=== PATIENT | female | born 1995 | race Caucasian/White ===

== ENCOUNTER 2022-01-28 08:00 | Inpatient (IN) | payer OTHER ==
[2022-02-14] MEDS ORDERED: CITRIC ACID/SODIUM CITRATE 30 ML UNIT-DOSE CUP PO ONE (04:21)
[2022-02-14] MEDS ORDERED: CLINDAMYCIN 900 MG PREMIX IVPB 900 MG/50 ML BAG IVPB ONE (04:46)
[2022-02-14] MEDS: ELECTROLYTE-148 SOLN 1,000 ML IV SCH ×2 (05:00→07:47)
[2022-02-14 05:50] LABS: BASO % 0.6 % (0-2.0); EOS % 0.6 % (0-4.5); HEMATOCRIT 29.1 % (32.4-45.2); HEMOGLOBIN 9.1 GM/dL (10.7-15.3); LYMPH % 10.7 % (8-40); MCHC 31.3 g/dl (32.0-36.0); MEAN CELL VOLUME 70.1 fl (80-96); MEAN PLT VOLUME 8.7 fl (7.5-11.1); NEUT % 83.1 % (42.8-82.8); PLATELET COUNT 255 10^3/uL (134-434); RBC 4.15 M/mm3 (3.60-5.2); RDW 17.9 % (11.6-15.6); WHITE BLOOD COUNT 15.9 K/mm3 (4.0-10.0)
[2022-02-14 06:11] LABS: CALCIUM 8.3 mg/dL (8.5-10.1)
[2022-02-14 06:12] LABS: BLOOD UREA NITROGEN 9.8 mg/dL (7-18)
[2022-02-14 06:15] LABS: CREATININE 0.6 mg/dL (0.55-1.3)
[2022-02-14 06:16] VITALS: BMI 32.1
[2022-02-14 06:17] LABS: INR 0.94 (0.83-1.09); PROTHROMBIN TIME (PATIENT) 10.8 SEC (9.7-13.0)
[2022-02-14] MEDS ORDERED: morphine SULFATE/PF 1 MG/2 ML (2cc Syringe - QUVA) ONE (07:32)
[2022-02-14] MEDS ORDERED: PROPOFOL 20 ML ONE (07:32)
[2022-02-14] MEDS ORDERED: SUCCINYLCHOLINE CHLORIDE 200 MG/10 ML SYRINGE ONE (07:32)
[2022-02-14] MEDS ORDERED: PHENYLEPHRINE HCL 10 MG/1 ML SINGLE DOSE VIAL ONE (07:33)
[2022-02-14] MEDS ORDERED: ePHEDrine SULFATE 50 MG/1 ML AMPULE ONE (07:35)
[2022-02-14] MEDS ORDERED: OXYTOCIN 20 UNITS in 0.9% NS 20 UNIT/1,000 ML INFUS.BAG IV ONE ×2 (07:56→12:46)
[2022-02-14] MEDS ORDERED: ONDANSETRON 4 MG/2 ML VIAL ONE (08:24)
[2022-02-14 08:45] LABS: ANISOCYTOSIS 0; MACROCYTOSIS 0
[2022-02-14] MEDS: OXYTOCIN 20 UNITS in 0.9% NS 20 UNIT/1,000 ML INFUS.BAG IV SCH ×2 (08:45→12:49)
[2022-02-14] MEDS ORDERED: METHYLERGONOVINE MALEATE 0.2 MG/1 ML AMP IM PRN (09:24)
[2022-02-14] MEDS ORDERED: IBUPROFEN 600 MG TABLET (FP) PO PRN (09:24)
[2022-02-14] MEDS ORDERED: BENZOCAINE 20% 57 GM BOTTLE TP PRN (09:24)
[2022-02-14] MEDS ORDERED: BENZOCAINE 28 GM HEMORRHOIDAL OINTMENT TP PRN (09:24)
[2022-02-14] MEDS ORDERED: ACETAMINOPHEN 325 MG TABLET (FP) PO PRN (09:24)
[2022-02-14] MEDS ORDERED: SENNOSIDES/DOCUSATE COMBO (SENNA PLUS) TABLET (UD) PO PRN (09:24)
[2022-02-14] MEDS ORDERED: WITCH HAZEL 50% (TUCKS) 40 PAD/JAR PAD TP PRN (09:24)
[2022-02-14] MEDS ORDERED: IBUPROFEN 800 MG/8 ML IJ IVPB PRN (09:24)
[2022-02-14 10:35] LABS: CORD HCO3 25.3 mmHg (20-29); CORD PCO2 51.8 mmHg (30-78); CORD pH 7.307 (7.14-7.44)
[2022-02-14 10:38] LABS: CORD PCO2 46.1 mmHg (30-78); CORD pH 7.315 (7.14-7.44)
[2022-02-14] MEDS: PRENATAL VITAMINS W/ FOLIC ACID TABLET (FP) PO SCH (13:13)
[2022-02-14] MEDS ORDERED: oxyCODONE HCL 5 MG TABLET PO PRN ×2 (21:24)
[2022-02-15] MEDS: SIMETHICONE 80 MG TAB.CHEW (FP) PO PRN (01:51)
[2022-02-15] MEDS: ACETAMINOPHEN 650 MG/20.3 ML ORAL SOLUTION (CUPS) PO PRN ×2 (07:05→21:03)
[2022-02-15 08:45] LABS: BASO % 0.7 % (0-2.0); EOS % 0.5 % (0-4.5); HEMOGLOBIN 9.5 GM/dL (10.7-15.3); LYMPH % 10.5 % (8-40); MCHC 30.6 g/dl (32.0-36.0); MEAN PLT VOLUME 8.9 fl (7.5-11.1); MONO % 4.7 % (3.8-10.2); NEUT % 83.6 % (42.8-82.8); PLATELET COUNT 244 10^3/uL (134-434); RBC 4.31 M/mm3 (3.60-5.2); RDW 18.3 % (11.6-15.6); WHITE BLOOD COUNT 16.1 K/mm3 (4.0-10.0)
[2022-02-15] MEDS ORDERED: BISACODYL 10 MG SUPP.RECT RC PRN (09:24)
[2022-02-15] MEDS: ENOXAPARIN NA (PORCINE) 40 MG/0.4 ML DISP.SYRIN SQ SCH (09:33)
[2022-02-15] MEDS: PRENATAL VITAMINS W/ FOLIC ACID TABLET (FP) PO SCH (09:33)
[2022-02-15] MEDS ORDERED: DIPHTH,PERTUSS(ACELL),TET 0.5 ML DISP.SYRIN IM ONE (10:00)
[2022-02-15] MEDS ORDERED: DOCUSATE SODIUM 100 MG CAPSULE (FP) PO PRN (10:45)
[2022-02-15] MEDS ORDERED: FERROUS SO4 325 MG TABLET (FP) PO SCH (22:00)
[2022-02-16] MEDS: SIMETHICONE 80 MG TAB.CHEW (FP) PO PRN (05:16)
[2022-02-16] MEDS: IBUPROFEN 100 MG/5 ML UNIT DOSE CUPS PO PRN ×2 (05:17→19:56)
[2022-02-16] MEDS: ENOXAPARIN NA (PORCINE) 40 MG/0.4 ML DISP.SYRIN SQ SCH (09:16)
[2022-02-16] MEDS: ACETAMINOPHEN 650 MG/20.3 ML ORAL SOLUTION (CUPS) PO PRN (09:16)
[2022-02-16] MEDS: PRENATAL VITAMINS W/ FOLIC ACID TABLET (FP) PO SCH (09:17)
[2022-02-16 22:36] VITALS: TEMP 98.1
[2022-02-17] MEDS: IBUPROFEN 100 MG/5 ML UNIT DOSE CUPS PO PRN (05:35)
[2022-02-17 08:20] LABS: EOS % 2.4 % (0-4.5); HEMATOCRIT 28.9 % (32.4-45.2); LYMPH % 4.2 % (8-40); MCH 22.3 pg (25.7-33.7); MCHC 31.1 g/dl (32.0-36.0); MEAN CELL VOLUME 71.6 fl (80-96); MEAN PLT VOLUME 7.8 fl (7.5-11.1); MONO % 7.9 % (3.8-10.2); NEUT % 84.5 % (42.8-82.8); PLATELET COUNT 285 10^3/uL (134-434); RBC 4.04 M/mm3 (3.60-5.2); RDW 18.1 % (11.6-15.6); WHITE BLOOD COUNT 9.2 K/mm3 (4.0-10.0)
[2022-02-17] MEDS: ENOXAPARIN NA (PORCINE) 40 MG/0.4 ML DISP.SYRIN SQ SCH (09:48)
[2022-02-17] MEDS: PRENATAL VITAMINS W/ FOLIC ACID TABLET (FP) PO SCH (09:48)
[2022-02-17 12:31] VITALS: BP 102/70; PULSE 93; RESP 16
== END 2022-02-17 11:50 | disposition home or self-care (01) | DRG 540 ==
LOC: JLDR 02-14 03:20 → J3W 02-14 13:00
PROVIDERS: ADMIT Obstetrics & Gynecology; ATTEND Obstetrics & Gynecology
PROC: 10D00Z1 Extraction of Products of Conception, Low, Open Approach (ICD-10-PCS; principal; 2022-02-14)
DX: O48.0 Post-term pregnancy (principal); O42.92 Full-term premature rupture of membranes, unspecified as to length of time between rupture and onset of labor; O34.219 Maternal care for unspecified type scar from previous cesarean delivery; Z3A.40 40 weeks gestation of pregnancy; Z37.0 Single live birth
CPT/HCPCS: 36415; 36600; 80048; 82803; 85025; 85610; 86780; 86850; 86900; 86901; 88307-TC; 90715; C9803-CS; U0003; U0005